=== PATIENT | female | born 1970 | race Caucasian/White ===

== ENCOUNTER 2016-12-22 21:52 | Emergency (ER) | payer OTHER ==
[2016-12-22] MEDS ORDERED: MAG HYDROX/AL HYDROX/SIMETH 30 ML UDC PO STA (22:39)
[2016-12-22] MEDS ORDERED: MAG HYDROX/AL HYDROX/SIMETH 30 ML UDC ONE (22:41)
== END 2016-12-23 00:45 | disposition home or self-care (01) ==
DX: R07.9 Chest pain, unspecified (principal)
CPT/HCPCS: 36415; 71020; 80048; 84484; 85025; 93005; 93010; 99283; 99284; A9270

== ENCOUNTER 2017-04-01 07:31 | Outpatient (CLI) | payer OTHER ==
[2017-04-01] MEDS ORDERED: GADOBUTROL 10 MMOL/10 ML SYRINGE IVP ONE (08:18)
--- NOTE | 2017-04-01 10:24 | MRI Report ---
MRI BRAIN WITHOUT AND WITH CONTRAST INDICATION: 46-year-old female with visual changes, paresthesias, balance issues and cognitive issues . Please assess. TECHNIQUE: 1. Sagittal T1 3-D and T2 FLAIR. 2. Axial T1, FLAIR, T2 and DWI. 3. 10 mL IV Gadavist. T1 3-D axial. COMPARISON: None. FINDINGS: Ventricular size is normal. Signal intensity of cortex and white matter appears normal. Flow voids are demonstrated in the main intracranial arteries. No abnormal diffusion restriction is d emonstrated. A T2* GRE sequence has not been performed. However, there is no evidence of acute or chr onic hemorrhage on the sequences provided. No enhancing intra or extra-axial mass lesion is demonstrated on postcontrast sequence. There is no a bnormal meningeal or cranial nerve enhancement. There appears be normal intravascular contrast enhanc ement in the dural venous sinuses and deep venous structures. This effectively excludes the possibili ty of venous thrombosis. The pituitary has a normal size. No suprasellar mass lesion is demonstrated. The optic chiasm appears normal and noncompressed. Limited assessment of the orbits reveals no gross pathology. There is minor mucosal thickening scattered throughout the maxillary, ethmoid and sphenoid sinuses. N o air-fluid level is demonstrated. No significant mastoid or middle ear effusion is seen. IMPRESSION: Normal brain MRI. In particular, no evidence of a demyelinating disease. In addition, no evidence of infarction, hemorrhage, space-occupying mass lesion or other acute intracranial abnormality. Referring Provider Line: [phone] SITE ID: [id number]
--- NOTE | 2017-04-01 14:04 | Ultrasound Report ---
PELVIC ULTRASOUND: 04/01/2017 CLINICAL INDICATION: Left adnexal mass on physical exam. TECHNIQUE: Transabdominal pelvic ultrasound performed for global evaluation. Transvaginal pelvic ultr asound performed for detailed evaluation. Real-time scanning performed and static images obtained. FINDINGS: The uterus is anteverted, measuring 10.1 x 5.2 x 4.3 cm. The endometrial echo complex kandi ures 3 mm. A 2.6 x 2.0 x 1.9 cm fibroid is noted in the left lower uterine segment/upper cervix, as w ell as multiple nabothian cysts in the cervix. The right ovary was not confidently identified on venegas sabdominal or transvaginal imaging. The left ovary measures 2.9 x 2.9 x 1.9 cm, and contains an 1.8 x 1.4 x 1.3 cm cyst. No free fluid is present. IMPRESSION: AN 1.8 CM LEFT OVARIAN CYST. 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 NO FREE FLUID. JOB #: [id number] EXT JOB #:[id number]
== END 2017-04-01 07:32 | disposition home or self-care (01) ==
LOC: DI 07:31
PROVIDERS: ATTEND Physician Assistant Medical
DX: H53.9 Unspecified visual disturbance (principal); R20.9 Unspecified disturbances of skin sensation; N83.202 Unspecified ovarian cyst, left side; D25.9 Leiomyoma of uterus, unspecified
CPT/HCPCS: 70553; 76830; 76856; A9585

== ENCOUNTER 2017-04-01 07:34 | Outpatient (CLI) | payer OTHER ==
--- NOTE | 2017-04-03 12:46 | Mammography Report ---
DIGITAL SCREENING MAMMOGRAM: 04/01/2017 CLINICAL INDICATION: A 46-year-old with history of benign biopsy for screening. COMPARISON: 07/15/2015, 12/28/2008. TECHNIQUE: Routine CC and MLO projections were obtained of the breasts. FINDINGS: The breasts again demonstrate scattered fibroglandular densities bilaterally. Postbiopsy changes are stable. A few coarse, typically benign calcifications are present. No suspicious masses , clustered microcalcifications, or regions of architectural distortion are identified. IMPRESSION: BENIGN FINDINGS. RECOMMENDATION: Routine annual screening unless otherwise clinically indicated. BI-RADS category 2, benign findings. STANDARD QUALIFYING STATEMENTS 1. This examination was reviewed with the aid of Computer-Aided Detection (CAD). 2. A negative or benign imaging report should not delay biopsy if clinically suspicious findings are present. Consider surgical consultation if warranted. More than 5% of cancers are not identified by i maging. 3. Dense breasts may obscure an underlying neoplasm. JOB #: [id number] EXT JOB #:[id number]
== END 2017-04-01 07:35 | disposition home or self-care (01) ==
LOC: DI 07:34
PROVIDERS: ATTEND Physician Assistant Medical
DX: Z12.31 Encounter for screening mammogram for malignant neoplasm of breast (principal)
CPT/HCPCS: 77067

== ENCOUNTER 2017-04-25 13:52 | Outpatient (CLI) | payer OTHER ==
[2017-04-25] MEDS ORDERED: GADOBUTROL 10 MMOL/10 ML SYRINGE IVP ONE (14:51)
--- NOTE | 2017-04-25 15:49 | MRI Preliminary Report ---
Exam: MRI Angio Neck W/WO (MRA) IMPRESSION: Normal neck MRA. No hemodynamically significant stenoses. [facility] SITE ID: [id number]
--- NOTE | 2017-04-25 15:52 | MRI Report ---
EXAM: MR ANGIOGRAM NECK EXAM DATE: 04/25/2017 03:20 PM. CLINICAL HISTORY: DIZZINESS/VERTIGO, vision changes. COMPARISON: Brain MRI 04/01/2017. TECHNIQUE: Multiplanar, multisequence MRA sequences of the neck were performed. Other: None. Post-pro cessing: Multiplanar 3D MIP reconstructions. IV Contrast: Without and with 10 mL Gadavist. Evaluatio n of arterial stenosis is based on a NASCET method of measurement. FINDINGS: RIGHT Common Carotid: Patent. No dissection or significant stenosis. Internal Carotid: Patent. No dissection or significant stenosis. External Carotid: Patent. No dissection or significant stenosis. Vertebral: Patent. No dissection or significant stenosis. LEFT Common Carotid: Patent. No dissection or significant stenosis. Internal Carotid: Patent. No dissection or significant stenosis. External Carotid: Patent. No dissection or significant stenosis. Vertebral: Patent. No dissection or significant stenosis. Intracranial Circulation: No stenoses or aneurysms in the visualized portion of the intracranial vasc ulature. Other: The soft tissues, bones, and lung apices are within normal limits. IMPRESSION: Normal neck MRA. No hemodynamically significant stenoses. [facility] Referring Provider Line: [phone] SITE ID: [id number]
== END 2017-04-25 13:53 | disposition home or self-care (01) ==
LOC: DI 13:52
PROVIDERS: ATTEND Physician Assistant Medical
DX: H83.2X3 Labyrinthine dysfunction, bilateral (principal); R42 Dizziness and giddiness
CPT/HCPCS: 70549; A9585

== ENCOUNTER 2017-07-20 09:48 | Outpatient (CLI) | payer OTHER ==
[2017-07-20 10:38] LABS: BASOPHILS % (AUTO) 0.5 %; EOSINOPHILS # (AUTO) 0.1 10^3/uL (0.0-0.7); EOSINOPHILS % (AUTO) 1.3 %; HCT - HEMATOCRIT 40.4 % (37.0-47.0); HGB - HEMOGLOBIN 13.9 g/dL (12.0-16.0); LYMPHOCYTES # (AUTO) 3.6 10^3/uL (1.5-3.5); LYMPHOCYTES % (AUTO) 44.1 %; MEAN CORPUSCULAR HEMOGLOBIN 29.2 pg (27.0-31.0); MEAN CORPUSCULAR HGB CONC 34.3 g/dL (32.0-36.0); MEAN CORPUSCULAR VOLUME 85.2 fL (81.0-99.0); MEAN PLATELET VOLUME 7.9 fL (7.9-10.8); MONOCYTES # (AUTO) 0.5 10^3/uL (0.0-1.0); MONOCYTES % (AUTO) 6.6 %; NEUTROPHILS # (AUTO) 3.8 10^3/uL (1.5-6.6); NEUTROPHILS % (AUTO) 47.5 %; RED BLOOD COUNT 4.75 10^6/uL (4.20-5.40); UNCORRECTED WHITE BLOOD COUNT 8.1 x10^3/uL; WHITE BLOOD COUNT 8.1 x10^3/uL (4.8-10.8)
[2017-07-20 11:17] LABS: ALBUMIN/GLOBULIN RATIO 1.4 (1.0-2.2); BILIRUBIN,TOTAL 0.6 mg/dL (0.2-1.0); CALCIUM 9.8 mg/dL (8.5-10.3); CREATININE 0.7 mg/dL (0.4-1.0); POTASSIUM 4.2 mmol/L (3.5-5.0); TOTAL PROTEIN 7.1 g/dL (6.7-8.2)
== END 2017-07-20 09:49 | disposition home or self-care (01) ==
LOC: LAB 09:48
PROVIDERS: ATTEND Physician Assistant
DX: R19.7 Diarrhea, unspecified (principal)
CPT/HCPCS: 80053; 82270; 83630; 85025; 87045; 87046; 87177; 87209; 87493

== ENCOUNTER 2017-08-10 06:48 | Outpatient (CLI) | payer OTHER ==
[2017-08-10] MEDS ORDERED: IOPAMIDOL-300 100 ML VIAL ONE ×2 (07:03→07:17)
[2017-08-10] MEDS ORDERED: IOPAMIDOL-300 50 ML VIAL ONE ×2 (07:03→07:17)
[2017-08-10] MEDS ORDERED: IOPAMIDOL-300 50 ML VIAL PO ONE (08:41)
[2017-08-10] MEDS ORDERED: IOPAMIDOL-300 100 ML VIAL IVP ONE (08:41)
--- NOTE | 2017-08-10 20:36 | CT Report ---
EXAM: CT ABDOMEN AND PELVIS EXAM DATE: 08/10/2017 08:38 a.m. CLINICAL HISTORY: Bloody stools. COMPARISONS: None. TECHNIQUE: Routine helical CT imaging was performed through the abdomen and pelvis. IV contrast: 100 mL of Isovue-300. Enteric contrast: Yes. Reconstructions: Coronal and sagittal. In accordance with CT protocol optimization, one or more of the following dose reduction techniques w ere utilized for this exam: automated exposure control, adjustment of mA and/or KV based on patient s ize, or use of iterative reconstructive technique. FINDINGS: Lung Bases: Unremarkable. Liver: Normal. No masses. Gallbladder/Bile Ducts: Unremarkable. Spleen: Normal. Pancreas: Normal. Adrenal Glands: Normal. Kidneys: Normal. No masses or hydronephrosis. Peritoneal Cavity/Bowel: Normal. No free fluid, free air or adenopathy. No masses or acute inflammato ry process. Nonvisualized appendix. Pelvic Organs: The reproductive organs and bladder are unremarkable. Vasculature: No aneurysms or other significant abnormality. Bones: No significant abnormality. Other: Small fat-containing umbilical hernia noted. IMPRESSION: Small fat-containing umbilical hernia noted, otherwise unremarkable abdomen and pelvis CT. [facility] Referring Provider Line: [phone] SITE ID: [id number]
== END 2017-08-10 06:49 | disposition home or self-care (01) ==
LOC: DI 06:48
PROVIDERS: ATTEND Physician Assistant Medical
DX: K42.9 Umbilical hernia without obstruction or gangrene (principal); K92.1 Melena
CPT/HCPCS: 74177; Q9967